=== PATIENT | female | born 1995 | race Caucasian/White ===

== ENCOUNTER 2017-10-24 07:55 | Emergency (ER) | payer OTHER ==
[~2017-10-24] VITALS: Ht 162.6 cm; Wt 73.0 kg
[~2017-10-24 07:55] MED LIST: Z.0.BCPILL PO
[2017-10-24 07:58] VITALS: BP 131/87; PULSE 126; RESP 16; TEMP 98.5; O2SAT 97
[2017-10-24] MEDS ORDERED: SODIUM CHLORIDE 0.9% FLUSH 10 ML FLUSH IV FLUSH PRN (08:15)
[2017-10-24] MEDS ORDERED: SODIUM CHLOR 0.9% 1000 ML INJ 1,000 ML IV ONE (08:15)
[2017-10-24] MEDS ORDERED: ONDANSETRON HCL 4 MG/2 ML VIAL IV PUSH ONE (08:15)
--- NOTE | 2017-10-24 08:32 | PD ---
HPI Chief Complaint: GI Complaint Time Seen by Provider: 08:19 Travel History International Travel<30 days: No Contact w/Intl Traveler<30days: No Traveled to known affect area: No History of Present Illness HPI 22yo F presented to the ED with nausea, vomiting and diarrhea. Pt states that after dinner last night she started to feel nausea, but per her mother she is always nausea after eating. Pt took some Dramamine for relief and went to bed. About 1:00am, she awoke all of the sudden with vomiting and diarrhea. She reports at least 9 episodes of N/V and diarrhea since that time. She attempted to take Pepto Bismol but was unable to keep it down. 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 She also has a medical history of GERD, that is not treated. She reports chills, hot flashes , headache and muscle aches. She denies any hematemesis, coffee ground emesis, hematochezia, melena, abdominal pain, cough, sore throat, lightheadedness or dizziness. She also denies any exposure to abnormal foods. Modifying Factors: None Associated Signs & Symptoms: Nausea, vomiting, diarrhea Risk Factors: Contact with influenza PFSH Past Medical History Cancer: No Diabetes: No Hepatitis: No Hiatal Hernia: No Immunizations Current: Yes Thyroid Disease: No ?: Not LMP: NOW Past Surgical History Pacemaker: No Social History Alcohol Use: No Tobacco Use: No Allergies-Medications (Allergen,Severity, Reaction): Coded Allergies: No Known Allergies (Verified Adverse Reaction, Unknown, 10/24/17) Reported Meds & Prescriptions Reported Meds & Active Scripts Active Reported Control Pills (Miscellaneous Medication) Tab 1 Tab PO DAILY Review of Systems Except as stated in HPI: all other systems reviewed are Neg General / Constitutional: Positive: Chills HENT: Positive: Headaches Gastrointestinal: Positive: Nausea, Vomiting, Diarrhea, Indigestion Physical Exam Narrative GENERAL: 22yo F who is well-developed and well nourished. Appears fatigued, in mild distress. Alert and oriented x3. SKIN: Warm and dry. HEAD: Atraumatic. Normocephalic. NECK: Trachea midline. No JVD. Supple. ENT: Mucosa pink and moist. Mild erythema with no exudates. No uvular edema. No uvular, palatal, or tonsillar deviation. Airway patent. CARDIOVASCULAR: Tachycardic with normal rhythm. RESPIRATORY: No accessory muscle use. Clear to auscultation. Breath sounds equal bilaterally. GASTROINTESTINAL: Abdomen soft, non-tender, nondistended. Hepatic and splenic margins not palpable. Active bowel sounds. Benign. MUSCULOSKELETAL: Extremities without clubbing, cyanosis, or edema. No obvious deformities. NEUROLOGICAL: Awake and alert. No obvious cranial nerve deficits. Motor grossly within normal limits. Normal speech. PSYCHIATRIC: Appropriate mood and affect; insight and judgment normal. Data Data Last Documented VS Vital Signs Date Time Temp Pulse Resp B/P (MAP) Pulse Ox O2 Delivery O2 Flow Rate FiO2 10/24/17 09:01 88 17 110/73 (85) 98 Room Air 10/24/17 07:58 98.5 Orders Orders Complete Blood Count With Diff (10/24/17 08:10) Comprehensive Metabolic Panel (10/24/17 08:10) Lipase (10/24/17 08:10) Urinalysis - C+S If Indicated (10/24/17 08:10) Iv Access Insert/Monitor (10/24/17 08:10) Ecg Monitoring (10/24/17 08:10) Oximetry (10/24/17 08:10) Sodium Chloride 0.9% Flush (Ns Flush) (10/24/17 08:15) Ed Urine Pregnancytest Poc (10/24/17 08:10) Sodium Chlor 0.9% 1000 Ml Inj (Ns 1000 M (10/24/17 08:15) Ondansetron Inj (Zofran Inj) (10/24/17 08:15) Influenzae A/B Antigen (10/24/17 08:20) Ibuprofen (Motrin) (10/24/17 09:15) Ct Abd/Pel W Iv Contrast(Rout) (10/24/17 09:32) Iohexol 350 Inj (Omnipaque 350 Inj) (10/24/17 10:11) Promethazine Inj (Phenergan Inj) (10/24/17 10:30) Labs Laboratory Tests Test 10/24/17 08:12 10/24/17 08:23 White Blood Count 13.0 TH/MM3 Red Blood Count 5.31 MIL/MM3 Hemoglobin 15.8 GM/DL Hematocrit 47.2 % Mean Corpuscular Volume 88.8 FL Mean Corpuscular Hemoglobin 29.7 PG Mean Corpuscular Hemoglobin Concent 33.4 % Red Cell Distribution Width 12.4 % Platelet Count 275 TH/MM3 Mean Platelet Volume 9.2 FL Neutrophils (%) (Auto) 91.0 % Lymphocytes (%) (Auto) 2.9 % Monocytes (%) (Auto) 3.4 % Eosinophils (%) (Auto) 0.4 % Basophils (%) (Auto) 2.3 % Neutrophils # (Auto) 11.8 TH/MM3 Lymphocytes # (Auto) 0.4 TH/MM3 Monocytes # (Auto) 0.4 TH/MM3 Eosinophils # (Auto) 0.1 TH/MM3 Basophils # (Auto) 0.3 TH/MM3 CBC Comment DIFF FINAL Differential Comment Urine Collection Type CLEAN CATCH Urine Color YELLOW Urine Turbidity CLEAR Urine pH 5.5 Urine Specific [place] 1.024 Urine Protein NEG mg/dL Urine Glucose (UA) NEG mg/dL Urine Ketones NEG mg/dL Urine Occult Blood LARGE Urine Nitrite NEG Urine Bilirubin NEG Urine Leukocyte Esterase NEG Urine RBC 4-9 /hpf Urine WBC 0-2 /hpf Urine Squamous Epithelial Cells 0-5 /hpf Urine Mucus /lpf Microscopic Urinalysis Comment CULT NOT INDICATED Urine Collection Time 08:23 Blood Urea Nitrogen 16 MG/DL Creatinine 0.93 MG/DL Random Glucose 126 MG/DL Total Protein 7.9 GM/DL Albumin 3.8 GM/DL Calcium Level 8.9 MG/DL Alkaline Phosphatase 73 U/L Aspartate Amino Transf (AST/SGOT) 13 U/L Alanine Aminotransferase (ALT/SGPT) 18 U/L Total Bilirubin 0.5 MG/DL Sodium Level 139 MEQ/L Potassium Level 3.5 MEQ/L Chloride Level 106 MEQ/L Carbon Dioxide Level 23.9 MEQ/L Anion Gap 9 MEQ/L Lipase 106 U/L MDM Medical Decision Making Medical Screen Exam Complete: Yes Emergency Medical Condition: Yes Medical Record Reviewed: Yes Interpretation(s) Laboratory Tests Test 10/24/17 08:12 10/24/17 08:23 White Blood Count 13.0 TH/MM3 (4.0-11.0) Red Blood Count 5.31 MIL/MM3 (4.00-5.30) Hemoglobin 15.8 GM/DL (11.6-15.3) Hematocrit 47.2 % (35.0-46.0) Neutrophils (%) (Auto) 91.0 % (16.0-70.0) Lymphocytes (%) (Auto) 2.9 % (9.0-44.0) Basophils (%) (Auto) 2.3 % (0.0-2.0) Neutrophils # (Auto) 11.8 TH/MM3 (1.8-7.7) Lymphocytes # (Auto) 0.4 TH/MM3 (1.0-4.8) Basophils # (Auto) 0.3 TH/MM3 (0-0.2) Urine Occult Blood LARGE (NEG) Urine RBC 4-9 /hpf (0-3) Random Glucose 126 MG/DL (74-106) Aspartate Amino Transf (AST/SGOT) 13 U/L (15-37) Last 24 hours Impressions Abdomen/Pelvis CT 10/24/17 0932 Signed Impressions: Service Date/Time: Wednesday, October 24, 2017 10:02 - CONCLUSION: 1. No acute findings in the abdomen and pelvis. 2. 2 cm intermediate density mass in the midpole the right kidney. Most likely etiology is a complex cyst. Recommend a routine followup renal ultrasound for further evaluation. Stanley Hernandez MD Differential Diagnosis Influenza versus viral syndrome versus dehydration versus gastritis versus gastroenteritis versus pancreatitis versus sepsis versus pneumonia Narrative Course Influenza testing is negative. Lab work did not indicate significant dehydration or metabolic issues. CAT scan was done due to elevated white blood cell count and did not show any signs of acute intra-abdominal processes. Patient does have a right renal cyst that can be evaluated further with primary care physician through renal ultrasound. Pulmonary exam is fairly unremarkable and I'm not suspecting a pneumonia in this case. She has no meningeal signs, no neck stiffness, no photophobia. I do not think that evaluation for meningitis is warranted in this case. Considering her exposures, this is much more likely to be of viral etiology and influenza cannot be completely ruled out even with rapid flu test. Considering symptoms and exposure, my plan would be to treat her for influenza. We will also give her symptomatically relief with nausea medications. Follow-up as necessary with primary care doctor. Return for worsening in symptoms as necessary. The plan has been discussed with her and she states understanding. Diagnosis Primary Impression: Nausea and vomiting Med/Other Pt SpecificInfo: Prescription(s) given Scripts Ibuprofen (Ibuprofen) 600 Mg Tab 600 MG PO Q6H Y for Pain/Inflammation, #20 TAB 0 Refills Prov: Cass Jauregui MD 10/24/17 Ondansetron Odt (Zofran Odt) 4 Mg Tab 4 MG SL Q6HR Y for Nausea/Vomiting, #7 TAB 0 Refills Prov: Cass Jauregui MD 10/24/17 Oseltamivir (Tamiflu) 75 Mg Cap 75 MG PO BID for Mgmt Viral Infection for 5 Days, #10 CAP 0 Refills Prov: Cass Jauregui MD 10/24/17 Disposition: 01 DISCHARGE HOME Condition: Stable Cass Jauregui MD Oct 24, 2017 08:32
[2017-10-24 08:44] LABS: BILIRUBIN, URINE NEG (NEG); BLOOD, URINE LARGE (NEG); GLUCOSE,URINE NEG (NEG); KETONE, URINE NEG (NEG); NITRITE,URINE NEG (NEG); PH, URINE 5.5 (5.0-8.5); URINE LEUKOCYTE ESTERASE NEG (NEG)
[2017-10-24 08:55] LABS: CHLORIDE 106 MEQ/L (98-107); SODIUM (NA) 139 MEQ/L (136-145)
[2017-10-24 08:59] LABS: ALBUMIN 3.8 GM/DL (3.4-5.0); BICARBONATE 23.9 MEQ/L (21.0-32.0); BLOOD UREA NITROGEN 16 MG/DL (7-18); CALCIUM 8.9 MG/DL (8.5-10.1); GLUCOSE,RANDOM 126 MG/DL (74-106); LIPASE 106 U/L (73-393); SQUAMOUS EPITHELIAL CELL URINE 0-5 /hpf (0-5); URINE COLOR YELLOW (YELLW/STRAW); WBC, URINE 0-2 /hpf (0-5)
[2017-10-24 08:59] LABS: AUTOMATED NEUTROPHIL # 11.8 TH/MM3 (1.8-7.7); BASOPHIL # 0.3 TH/MM3 (0-0.2); BASOPHIL % 2.3 % (0.0-2.0); EOSINOPHIL # 0.1 TH/MM3 (0-0.4); EOSINOPHIL % 0.4 % (0.0-4.0); HEMATOCRIT 47.2 % (35.0-46.0); HEMOGLOBIN 15.8 GM/DL (11.6-15.3); LYMPH % 2.9 % (9.0-44.0); LYMPHOCYTE # 0.4 TH/MM3 (1.0-4.8); MEAN CELL VOLUME 88.8 FL (80.0-100.0); MEAN CORPUSCULAR HEMOGLOBIN 29.7 PG (27.0-34.0); MEAN CORPUSCULAR HGB CONC 33.4 % (32.0-36.0); MEAN PLATELET VOLUME 9.2 FL (7.0-11.0); MONO % 3.4 % (0.0-8.0); MONOCYTE # 0.4 TH/MM3 (0-0.9); PLATELET COUNT 275 TH/MM3 (150-450); RED BLOOD COUNT 5.31 MIL/MM3 (4.00-5.30); RED CELL DISTRIBUTION WIDTH 12.4 % (11.6-17.2)
[2017-10-24 09:01] VITALS: BP 110/73; PULSE 88; RESP 17; O2SAT 98
[2017-10-24 09:02] LABS: ALT (GPT) 18 U/L (10-53); AST (GOT) 13 U/L (15-37); CREATININE 0.93 MG/DL (0.50-1.00); GLOMERULAR FILTRATION RATE 74 ML/MIN (>89)
[2017-10-24 09:03] LABS: TOTAL BILIRUBIN ADULT 0.5 MG/DL (0.2-1.0)
[2017-10-24 09:04] LABS: TOTAL PROTEIN 7.9 GM/DL (6.4-8.2)
[2017-10-24 09:05] LABS: ALKALINE PHOSPHATASE 73 U/L (45-117)
[2017-10-24] MEDS ORDERED: IBUPROFEN 600 MG TAB PO ONE (09:15)
[2017-10-24] MEDS ORDERED: IOHEXOL 350 MG/ML 10 ML VIAL (for RAD DIAG) IVCONTRAST ONE (10:11)
--- NOTE | 2017-10-24 10:27 | RADRPT ---
EXAM DATE/TIME: 10/24/2017 10:02 [facility] COMPARISON: No previous studies available for comparison. INDICATIONS : Nausea, vomiting and diarrhea. IV CONTRAST: 90 cc Omnipaque 350 (iohexol) IV ORAL CONTRAST: No oral contrast ingested. RADIATION DOSE: 12.50 CTDIvol (mGy) MEDICAL HISTORY : Gastroesophageal reflux disease. SURGICAL HISTORY : None. ENCOUNTER: Initial ACUITY: 1 day PAIN SCALE: 0/10 LOCATION: abdomen TECHNIQUE: Volumetric scanning of the abdomen and pelvis was performed. Using automated exposure control and ad justment of the mA and/or kV according to patient size, radiation dose was kept as low as reasonably achievable to obtain optimal diagnostic quality images. DICOM format image data is available electro nically for review and comparison. FINDINGS: LOWER LUNGS: The visualized lower lungs are clear. LIVER: Homogeneous density without lesion. There is no dilation of the biliary tree. No calcified gallston es. SPLEEN: Normal size without lesion. PANCREAS: Within normal limits. KIDNEYS: 2.4 x 1.8 cm triangular-shaped intermediate density mass of the lateral midpole of the right kidney. Kidneys otherwise within normal limits. No evidence of hydronephrosis. ADRENAL GLANDS: Within normal limits. VASCULAR: There is no aortic aneurysm. BOWEL/MESENTERY: No evidence of bowel dilatation. No free air or free fluid. Appendix within normal limits. ABDOMINAL WALL: Within normal limits. RETROPERITONEUM: There is no lymphadenopathy. BLADDER: No wall thickening or mass. REPRODUCTIVE: Within normal limits. INGUINAL: There is no lymphadenopathy or hernia. MUSCULOSKELETAL: Within normal limits for patient age. CONCLUSION: 1. No acute findings in the abdomen and pelvis. 2. 2 cm intermediate density mass in the midpole the right kidney. Most likely etiology is a complex cyst. Recommend a routine followup renal ultrasound for further evaluation. Stanley Hernandez MD on October 24, 2017 at 10:14 Board Certified Radiologist. This report was verified electronically.
[2017-10-24] MEDS ORDERED: PROMETHAZINE INJ 25 MG/ML VIAL IM ONE (10:30)
[2017-10-24] MEDS ORDERED: ZOFR4TAB3 SL (10:38)
[2017-10-24] MEDS ORDERED: OSEL75 PO (10:38)
[2017-10-24] MEDS ORDERED: IBUP-232 PO (10:38)
== END 2017-10-24 10:51 | disposition home or self-care (01) ==
LOC: PHED 07:55
DX: R11.2 Nausea with vomiting, unspecified (principal); B34.9 Viral infection, unspecified; D72.829 Elevated white blood cell count, unspecified; K21.9 Gastro-esophageal reflux disease without esophagitis; N28.1 Cyst of kidney, acquired
CPT/HCPCS: 74177; 80053; 81001; 83690; 84703; 85025; 87804; 96361; 96372; 96374; 99285; J2405; J2550; J7030; Q9967